=== PATIENT | female | born 1955 ===

== ENCOUNTER → 2016-09-15 | Outpatient (CLI) | payer BC ==
[~2016-09-15] MED LIST: ATV5X PO; BORA500C PO; CHOL100027 PO; CIPR-255 PO; GREE1CAP PO; LXP10 PO; OMEG12006 PO
== END | disposition home or self-care (01) ==
LOC: C.PATHSPEC 17:00
PROVIDERS: ATTEND Plastic Surgery
DX: L82.0 Inflamed seborrheic keratosis (principal)